=== PATIENT | male | born 1995 | race Hispanic/Latino ===

== ENCOUNTER 2018-04-10 10:31 | Emergency (ER) | payer BC ==
--- NOTE | 2018-04-10 14:45 | EDPHYS ---
Physician Documentation [facility] Name: Kiel Melvin Age: 23 yrs Sex: Male : 1995 Arrival Date: 04/10/2018 Time: 10:38 Bed 23 Private MD: Out, [facility] ED Physician Ryan Cobos HPI: 04/10 14:42 This 23 yrs old Male presents to ER via Ambulatory with complaints of Low sharita Blood Sugar. 14:42 The patient or guardian reports hypoglycemia. Onset: The symptoms/episode sharita began/occurred just prior to arrival. Associated signs and symptoms: Pertinent positives: None. Pertinent negatives: None. Current symptoms: In the emergency department the patient's symptoms are unchanged from the initial presentation. The patient has not experienced similar symptoms in the past. Historical: - Allergies: 10:46 No Known Allergies; hb - Home Meds: 10:46 None [Active]; hb - PMHx: 10:46 None; hb - PSHx: 10:46 None; hb - Immunization history:: Adult Immunizations up to date. - Social history:: Smoking status: Patient uses tobacco products. - Ebola Screening: : No symptoms or risks identified at this time. ROS: 14:43 Constitutional: Negative for fever, chills, and weight loss, Eyes: Negative for injury, sharita pain, redness, and discharge, ENT: Negative for injury, pain, and discharge, Neck: Negative for injury, pain, and swelling, Cardiovascular: Negative for chest pain, palpitations, and edema, Respiratory: Negative for shortness of breath, cough, wheezing, and pleuritic chest pain, Abdomen/GI: Negative for abdominal pain, nausea, vomiting, diarrhea, and constipation, Back: Negative for injury and pain, : Negative for injury, bleeding, discharge, and swelling, MS/Extremity: Negative for injury and deformity, Skin: Negative for injury, rash, and discoloration, Psych: Negative for depression, anxiety, suicide ideation, homicidal ideation, and hallucinations, Allergy/Immunology: Negative for hives, rash, and allergies, Endocrine: Negative for neck swelling, polydipsia, polyuria, polyphagia, and marked weight changes, Hematologic/Lymphatic: Negative for swollen nodes, abnormal bleeding, and unusual bruising. 14:43 Neuro: Positive for dizziness. Exam: 14:43 Constitutional: This is a well developed, well nourished patient who is awake, alert, sharita and in no acute distress. Head/Face: Normocephalic, atraumatic. Eyes: Pupils equal round and reactive to light, extra-ocular motions intact. Lids and lashes normal. Conjunctiva and sclera are non-icteric and not injected. Cornea within normal limits. Periorbital areas with no swelling, redness, or edema. ENT: Nares patent. No nasal discharge, no septal abnormalities noted. Tympanic membranes are normal and external auditory canals are clear. Oropharynx with no redness, swelling, or masses, exudates, or evidence of obstruction, uvula midline. Mucous membranes moist. Neck: Trachea midline, no thyromegaly or masses palpated, and no cervical lymphadenopathy. Supple, full range of motion without nuchal rigidity, or vertebral point tenderness. No Meningismus. Chest/axilla: Normal chest wall appearance and motion. Nontender with no deformity. No lesions are appreciated. Cardiovascular: Regular rate and rhythm with a normal S1 and S2. No gallops, murmurs, or rubs. Normal PMI, no JVD. No pulse deficits. Respiratory: Lungs have equal breath sounds bilaterally, clear to auscultation and percussion. No rales, rhonchi or wheezes noted. No increased work of breathing, no retractions or nasal flaring. Abdomen/GI: Soft, non-tender, with normal bowel sounds. No distension or tympany. No guarding or rebound. No evidence of tenderness throughout. Back: No spinal tenderness. No costovertebral tenderness. Full range of motion. Male : Normal genitalia with no discharge or lesions. Skin: Warm, dry with normal turgor. Normal color with no rashes, no lesions, and no evidence of cellulitis. MS/ Extremity: Pulses equal, no cyanosis. Neurovascular intact. Full, normal range of motion. Neuro: Awake and alert, GCS 15, oriented to person, place, time, and situation. Cranial nerves II-XII grossly intact. Motor strength 5/5 in all extremities. Sensory grossly intact. Cerebellar exam normal. Normal gait. Psych: Awake, alert, with orientation to person, place and time. Behavior, mood, and affect are within normal limits. Vital Signs: 10:43 BP 148 / 96; Pulse 89; Resp 16; Temp 98.5; Pulse Ox 100% on R/A; Weight 86.18 kg; hb Height 5 ft. 7 in. (170.18 cm); Pain 0/10; 13:29 BP 134 / 77; Pulse 82; Resp 16; Pulse Ox 97% on R/A; kr2 15:01 BP 132 / 92; Pulse 90; Resp 18; Pulse Ox 100% on R/A; kr2 10:43 Body Mass Index 29.76 (86.18 kg, 170.18 cm) hb MDM: 12:59 Patient medically screened. [facility] 04/10 12:17 Order name: Glucose, Ancillary Testing; Complete Time: 13:00 [facility] 04/10 12:17 Order name: Glucose, Ancillary Testing; Complete Time: 13:00 [facility] 04/10 12:19 Order name: Diet Regular; Complete Time: 12:20 ag Administered Medications: No medications were administered Point of Care Testing: Blood Glucose: 10:43 Blood Glucose: 91 mg/dL; hb Ranges: Critical Glucose Levels:Adult <50 mg/dl or >400 mg/dl <40 mg/dl or >180 mg/dl Disposition: 04/10/18 14:45 Discharged to Home. Impression: Dizziness and giddiness, Hypoglycemia, unspecified. - Condition is Stable. - Discharge Instructions: Dizziness, Hypoglycemia, Blood Glucose Monitoring, Adult, Hypoglycemia, [id number], Dizziness, [id number]. - Medication Reconciliation Form, Thank You Letter, Antibiotic Education, Prescription Opioid Use form. - Follow up: Private Physician; When: 2 - 3 days; Reason: Recheck today's complaints, Continuance of care, Re-evaluation by your physician. - Problem is new. - Symptoms have improved. Signatures: Dispatcher [employer] [facility] Ryan Cobos MD MD cha Baxter, Heather RN RN Katrina Aguila RN RN kr2 Corrections: (The following items were deleted from the chart) 15:01 14:45 04/10/2018 14:45 Discharged to Home. Impression: Dizziness and giddiness; kr2 Hypoglycemia, unspecified. Condition is Stable. Forms are Medication Reconciliation Form, Thank You Letter, Antibiotic Education, Prescription Opioid Use. Follow up: Private Physician; When: 2 - 3 days; Reason: Recheck today's complaints, Continuance of care, Re-evaluation by your physician. Problem is new. Symptoms have improved. sharita
--- NOTE | 2018-04-10 14:45 | ER ---
Nurse's Notes [facility] Name: Kiel Melvin Age: 23 yrs Sex: Male : 1995 Arrival Date: 04/10/2018 Time: 10:38 Bed 23 Private MD: Out, of [facility] Diagnosis: Dizziness and giddiness;Hypoglycemia, unspecified Presentation: 04/10 10:44 Presenting complaint: Patient states: "I have been feeling weird and shaky at work this hb week, the medic checked my sugar and said it was low, in the 70s, so they sent me here to get checked out.". Transition of care: patient was not received from another setting of care. Onset of symptoms is unknown. Risk Assessment: Do you want to hurt yourself or someone else? Patient reports no desire to harm self or others. Initial Sepsis Screen: Does the patient meet any 2 criteria? No. Patient's initial sepsis screen is negative. Does the patient have a suspected source of infection? No. Patient's initial sepsis screen is negative. Note BGL 91 in triage. Care prior to arrival: None. 10:44 Method Of Arrival: Ambulatory hb 10:44 Acuity: SHERIF 3 hb Historical: - Allergies: 10:46 No Known Allergies; hb - Home Meds: 10:46 None [Active]; hb - PMHx: 10:46 None; hb - PSHx: 10:46 None; hb - Immunization history:: Adult Immunizations up to date. - Social history:: Smoking status: Patient uses tobacco products. - Ebola Screening: : No symptoms or risks identified at this time. Screenin:28 Abuse screen: Denies threats or abuse. Denies injuries from another. Nutritional kr2 screening: No deficits noted. Tuberculosis screening: No symptoms or risk factors identified. Fall Risk None identified. Assessment: 13:01 Reassessment: Diet tray given to patient. ss 13:25 General: Appears in no apparent distress. comfortable, well groomed, well developed, kr2 well nourished, Behavior is calm, cooperative, appropriate for age. Pain: Denies pain. Neuro: Level of Consciousness is awake, alert, obeys commands, Oriented to person, place, time, situation, Appropriate for age. Cardiovascular: Capillary refill < 3 seconds in bilateral fingers Patient's skin is warm and dry. Cardiovascular: Reports fatigue. Respiratory: Airway is patent Respiratory effort is even, unlabored, Respiratory pattern is regular, symmetrical. GI: Abdomen is flat, non-distended. : No signs and/or symptoms were reported regarding the genitourinary system. EENT: Oral mucosa is moist. Derm: Skin is intact, is healthy with good turgor, Skin is pink, warm \\T\\ dry. Musculoskeletal: Circulation, motion, and sensation intact. 14:58 Reassessment: Patient appears in no apparent distress at this time. Patient and/or kr2 family updated on plan of care and expected duration. Pain level reassessed. Patient is alert, oriented x 3, equal unlabored respirations, skin warm/dry/pink. Patient states feeling better. Patient states symptoms have improved. Vital Signs: 10:43 BP 148 / 96; Pulse 89; Resp 16; Temp 98.5; Pulse Ox 100% on R/A; Weight 86.18 kg; hb Height 5 ft. 7 in. (170.18 cm); Pain 0/10; 13:29 BP 134 / 77; Pulse 82; Resp 16; Pulse Ox 97% on R/A; kr2 15:01 BP 132 / 92; Pulse 90; Resp 18; Pulse Ox 100% on R/A; kr2 10:43 Body Mass Index 29.76 (86.18 kg, 170.18 cm) hb ED Course: 10:38 Patient arrived in ED. sb2 10:39 Out, [facility] is Private Physician. sb2 10:44 Arm band placed on right wrist. hb 10:45 Triage completed. hb 12:59 Ryan Cobos MD is Attending Physician. sharita 13:00 Katrina Aguila, KERMIT is Primary Nurse. kr2 13:28 Patient has correct armband on for positive identification. Bed in low position. Call kr2 light in reach. Side rails up X 1. Pulse ox on. NIBP on. Door closed. Warm blanket given. Head of bed elevated. 14:59 No provider procedures requiring assistance completed. Patient did not have IV access kr2 during this emergency room visit. Administered Medications: No medications were administered Point of Care Testing: Blood Glucose: 10:43 Blood Glucose: 91 mg/dL; hb Ranges: Outcome: 14:45 Discharge ordered by . sharita 15:00 Discharged to home ambulatory. kr2 15:00 Condition: good 15:00 Discharge instructions given to patient, Instructed on discharge instructions, follow up and referral plans. Demonstrated understanding of instructions, follow-up care. 15:01 Patient left the ED. kr2 Signatures: Ryan Cobos MD MD cha Smirch, Shelby, RN RN ss Janeen De La Fuente RN RN hb Katrina Aguila RN RN kr2 Deja Ospina sb2 Corrections: (The following items were deleted from the chart) 10:46 10:44 Note BGL 93 in triage hb hb
== END 2018-04-10 15:01 | disposition home or self-care (01) ==
LOC: ER 10:31
DX: E16.2 Hypoglycemia, unspecified (principal); Z72.0 Tobacco use
CPT/HCPCS: 82962; 99283